=== PATIENT | male | born 1965 | race African-American/Black ===

== ENCOUNTER 2020-03-31 15:52 | Emergency (ER) | payer SELFPAY ==
[~2020-03-31] VITALS: Ht 170.2 cm; Wt 70.0 kg
[2020-03-31] MEDS ORDERED: KETOROLAC 30MG/ML VIAL IM ONE (16:30)
[2020-03-31 16:45] VITALS: BP 124/61
== END 2020-03-31 17:53 | disposition home or self-care (01) ==
LOC: ER 15:52
DX: S16.1XXA Strain of muscle, fascia and tendon at neck level, initial encounter (principal); M54.5 Low back pain; Z91.018 Allergy to other foods; V49.88XA Car occupant (driver) (passenger) injured in other specified transport accidents, initial encounter; Y93.89 Activity, other specified; Y92.89 Other specified places as the place of occurrence of the external cause; Y99.8 Other external cause status
CPT/HCPCS: 72040; 96372; 99283; J1885